=== PATIENT | female | born 1950 | race Caucasian/White ===

== ENCOUNTER 2018-09-23 15:52 | Emergency (ER) | payer MEDICARE ==
--- NOTE | 2018-09-23 15:55 | ER Report ---
History and Physical Time Seen By MD: 15:50 HPI/ROS Arrived to [place] less than 48 hours ago. On an RV trip from [place]. Presents feeling fast heart beat, mild SOB, and feeling achy and "flu-like." No chest pain. No abdominal pain. No fever/chills. No dysuria or hematuria. RV trip came through [place], so has not been at altitude. Otherwise feels well. Allergies: Coded Allergies: codeine (Verified Allergy, Intermediate, 09/23/18) tetracycline (Verified Allergy, Intermediate, 09/23/18) Home Meds Reported Medications Lisinopril (LISINOPRIL) 20 Mg Tablet, 20 MG PO QDAY, TAB 09/23/18 Reviewed Nurses Notes: Yes Old Medical Records Reviewed: Yes Hx Smoking: No Exposure to Second Hand Smoke?: No Hx Substance Use Disorder: No Hx Alcohol Use: No Constitutional Vital Sign - Last 24 Hours 09/23/18 15:55 Temp 98.2 Pulse 114 Resp 16 B/P (MAP) 159/95 Pulse Ox 93 O2 Delivery Room Air Physical Exam General Appearance: The patient is alert, has no immediate need for airway protection and no current signs of toxicity. Eyes: Pupils equal and round no injection. Respiratory: Chest is non tender, lungs are clear to auscultation. Cardiac: regular rate and rhythm Gastrointestinal: Abdomen is soft and non tender, no masses, bowel sounds normal. Musculoskeletal: Neck: Neck is supple and non tender. Extremities have full range of motion and are non tender. Skin: No rashes or lesions. DIFFERENTIAL DIAGNOSIS: After history and physical exam differential diagnosis was considered for altitude illness, infection, ACS, PE Medical Decision Making Data Points Result Diagram: 09/23/18 1557 09/23/18 1557 Laboratory Hematology Test 09/23/18 15:57 White Blood Count 9.4 k/uL (4.5-11.0) Red Blood Count 4.15 M/uL (4.17-5.56) L Hemoglobin 12.5 g/dL (12.0-16.0) Hematocrit 36.5 % (34.0-47.0) Mean Corpuscular Volume 88.0 fL (80.0-96.0) Mean Corpuscular Hemoglobin 30.1 pg (26.0-33.0) Mean Corpuscular Hemoglobin Concent 34.2 g/dL (32.0-36.0) Red Cell Distribution Width 13.8 % (11.5-14.5) Platelet Count 273 K/uL (150-450) Mean Platelet Volume 8.8 fL (7.2-11.1) Neutrophils (%) (Auto) 57.9 % (39.4-72.5) Lymphocytes (%) (Auto) 35.7 % (17.6-49.6) Monocytes (%) (Auto) 5.5 % (4.1-12.4) Eosinophils (%) (Auto) 0.4 % (0.4-6.7) Basophils (%) (Auto) 0.5 % (0.3-1.4) Nucleated RBC Relative Count (auto) 0.1 /100WBC Neutrophils # (Auto) 5.5 K/uL (2.0-7.4) Lymphocytes # (Auto) 3.4 K/uL (1.3-3.6) Monocytes # (Auto) 0.5 K/uL (0.3-1.0) Eosinophils # (Auto) 0.0 K/uL (0.0-0.5) Basophils # (Auto) 0.0 K/uL (0.0-0.1) Nucleated RBC Absolute Count (auto) 0.01 K/uL Chemistry Test 09/23/18 15:57 Sodium Level 138 mmol/L (137-145) Potassium Level 3.7 mmol/L (3.5-5.0) Chloride Level 102 mmol/L (98-107) Carbon Dioxide Level 28 mmol/L (22-31) Blood Urea Nitrogen 10 mg/dl (7-18) Creatinine 0.70 mg/dl (0.52-1.04) Glomerular Filtration Rate Calc > 60.0 Random Glucose 166 mg/dl (75-110) Calcium Level 9.3 mg/dl (8.4-10.2) Total Bilirubin 0.4 mg/dl (0.2-1.3) Aspartate Amino Transf (AST/SGOT) 33 U/L (0-35) Alanine Aminotransferase (ALT/SGPT) 27 U/L (0-56) Alkaline Phosphatase 88 U/L (0-126) Total Protein 7.6 g/dl (6.3-8.2) Albumin 4.4 g/dl (3.5-5.0) Urinalysis Test 09/23/18 17:06 Urine Color Straw Urine Clarity Clear Urine pH 7.0 pH (4.8-9.5) Urine Specific [place] 1.003 Urine Protein Negative mg/dL (NEGATIVE) Urine Glucose (UA) Negative mg/dL (NEGATIVE) Urine Ketones Negative mg/dL (NEGATIVE) Urine Blood Small (NEGATIVE) Urine Nitrite Negative (NEGATIVE) Urine Bilirubin Negative (NEGATIVE) Urine Urobilinogen Negative mg/dL (0.2-1.9) Urine Leukocyte Esterase Negative (NEGATIVE) Urine RBC <1 /HPF (0-2/HPF) Urine WBC 1 /HPF (0-5/HPF) Urine Squamous Epithelial Cells None /LPF (</=FEW) Urine Transitional Epithelial Cells Few /LPF (NONE-FEW) Urine Bacteria Few /HPF (NONE-FEW) Urine Mucus None /HPF (NONE-FEW) ED Course/Re-evaluation ED Course No chest pain or abdominal pain. Pt. states that the SOB is barely noticeable. What bothered her was her fast heart beat (she could see it on her apple watch) and flu-like symptoms. No AMS, mild HINES. Labs/UA WNL. EKG shows sinus tachycardia. Improved with IV fluids. Pt. did not want Decadron. I think this is c/w altitude illness. The patient and her agree. No evidence of infection. Will descend tomorrow towards [place]. The pt. knows it will take a few days to acclimate. Decision to Disposition Date: Sep 23, 2018 Decision to Disposition Time: 18:18 Depart Departure Latest Vital Signs Vital Signs Date Time Temp Pulse Resp B/P (MAP) Pulse Ox O2 Delivery O2 Flow Rate FiO2 09/23/18 15:55 98.2 114 16 159/95 93 Room Air Impression: Primary Impression: Altitude illness Condition: Improved Disposition: HOME OR SELF-CARE Patient Instructions: Mountain Sickness (ED) Problem Qualifiers Primary Impression: Altitude illness Encounter type: initial encounter Qualified Codes: T70.29XA - Other effects of high altitude, initial encounter CLEOPATRA GILL MD Sep 23, 2018 15:55
[2018-09-23] MEDS ORDERED: LISI20TA29 PO (16:00)
[2018-09-23] MEDS ORDERED: NS(*) 0.9% 1000 ML BAG 1,000 ML IV ONE (16:55)
[2018-09-23] MEDS ORDERED: DEXAMETHASONE SOD PHOS 10MG/ML IVP ONE (16:55)
[2018-09-23 17:08] LABS: PLATELET COUNT, AUTOMATED 273 K/uL (150-450)
[2018-09-23 18:30] VITALS: BP 142/83
--- NOTE | 2018-09-25 08:31 | EKG ---
FACILITY: [facility] - [place] PATIENT NAME: SARBJIT ESTRADA : [id number] MR: [id number] V: [id number] EXAM DATE: ORDERING PHYSICIAN: CLEOPATRA GILL TECHNOLOGIST: Test Reason : Blood Pressure : / mmHG Vent. Rate : 102 BPM Atrial Rate : 102 BPM P-R Int : 148 ms QRS Dur : 102 ms QT Int : 350 ms P-R-T Axes : 059 -43 037 degrees QTc Int : 456 ms Sinus tachycardia Left axis deviation Nonspecific T wave flattening Abnormal ECG No previous ECGs available Confirmed by REJI GALLAGHER ([id number] on 09/25/2018 10:57:40 AM Referred By: Confirmed By:REJI GALLAGHER
== END 2018-09-23 19:00 | disposition home or self-care (01) ==
LOC: ER 16:00
DX: T70.29XA Other effects of high altitude, initial encounter (principal)
CPT/HCPCS: 81001; 85025; 93005; 96374; 99283; J1100; J7030; 82040; 82247; 82310; 82374; 82435; 82565; 82947; 84075; 84132; 84155; 84295; 84450; 84460; 84520